=== PATIENT | male | born 1995 | race Caucasian/White ===

== ENCOUNTER 2016-08-20 10:52 | Emergency (ER) | payer OTHER ==
[~2016-08-20] VITALS: Ht 190.5 cm; Wt 86.2 kg
[2016-08-20 11:00] VITALS: BP 116/46
--- NOTE | 2016-08-20 11:08 | ED.ADGEN ---
Past History Past Medical History: No Pertinent History Adult General Chief Complaint Chief Complaint chin laceration HPI HPI Patient is a 21 year old male who presents with chin laceration. Patient was doing duty exercise, performing tasks where he would jump up in the ear with his legs, loss his balance and fell hitting his chin on the ground. No loss of consciousness. Normal ambulation after the fact. Reports he is up-to- date with his immunizations. Denies other injuries, no neck or back pain. Review of Systems Review of Systems Constitutional: Denies fever or chills [] Eyes: Denies change in visual acuity, redness, or eye pain [] HENT: Denies nasal congestion or sore throat [] Musculoskeletal: Denies back pain or joint pain [] Neurologic: reports mild headache, denies focal weakness or sensory changes [] Physical Exam Physical Exam Constitutional: Well developed, well nourished, no acute distress, non-toxic appearance.smiling, laughing HENT: Normocephalic, 2 cm linear chin laceration, good hemostasis, edges well- approximate. Eyes: PERRLA, EOMI, conjunctiva normal, no discharge. [] Neck: Normal range of motion, no tenderness, supple, no stridor. [] Cardiovascular:Heart rate regular Lungs & Thorax: no respiratory distress Neurologic: Alert and oriented X 3, normal motor function, normal sensory function, no focal deficits noted. [] Psychologic: Affect normal, judgement normal, mood normal. [] EKG EKG [] Radiology/Procedures Radiology/Procedures chin lac cleaned by nursing closed by me with skin glue, covered with 2 steristrips, wound care instruction given.[] Course & Med Decision Making Course & Med Decision Making Pertinent Labs and Imaging studies reviewed. (See chart for details) Return precautions given. concussion instructions given. Pt dc'd in improved condition. Final Impression Final Impression chin laceration[] Problems: Dragon Disclaimer Dragon Disclaimer This electronic medical record was generated, in whole or in part, using a voice recognition dictation system. LILY DENISE MD Aug 20, 2016 11:08
== END 2016-08-20 11:27 | disposition home or self-care (01) ==
LOC: ER 10:52
DX: S01.81XA Laceration without foreign body of other part of head, initial encounter (principal); W18.09XA Striking against other object with subsequent fall, initial encounter; Y93.89 Activity, other specified; Y99.8 Other external cause status; Y92.89 Other specified places as the place of occurrence of the external cause
CPT/HCPCS: 12011; 99283-25

== ENCOUNTER 2016-11-23 11:06 | Emergency (ER) | payer OTHER ==
[2016-11-23 11:15] VITALS: BP 111/80
--- NOTE | 2016-11-23 12:06 | PHYS DOC ---
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 He also has a scrape on his left knee and right leg but states that those areas are fine, he just wants to get his hand checked out. He was leaving branch and he fell forward down about 4 stairs. He caught himself with his left hand. It continues to hurt and have limited range of motion due to the pain. He denies head or neck injury. Review of Systems Review of Systems Musculoskeletal: As in history of present illness Integument: Abrasions to left knee and right leg as in history of present illness Neurologic: Denies head injury Allergies Allergies Allergies Coded Allergies Type Severity Reaction Last Updated Verified No Known Drug Allergies 08/20/16 No Physical Exam Physical Exam Constitutional: Well developed, well nourished, no acute distress, non-toxic appearance. Alert, mentating normally, ambulatory. HENT: Normocephalic, atraumatic, bilateral external ears normal, nose normal. [] Eyes: conjunctiva normal, no discharge. [] Neck: Normal range of motion, no stridor. [] Skin: Warm, dry, no erythema, no rash. Abrasion to the left knee with a Band- Aid on it. Extremities: Left hand has no deformity, no swelling. There is a small, superficial abrasion on the medial aspect of the hand. There is diffuse tenderness to palpation of the hand and fingers. No point tenderness. Patient is reluctant to move his fingers at all, stating it hurts too much. On discrete testing he does appear to have normal range of motion of the fingers however. Wrist is nontender to palpation with no snuffbox tenderness. Neurologic: Alert and oriented X 3, normal motor function, normal sensory function, no focal deficits noted. [] EKG EKG [] Radiology/Procedures Radiology/Procedures Three-view x-ray of the left hand read by me. No acute bony injury. [] Course & Med Decision Making Course & Med Decision Making Pertinent Labs and Imaging studies reviewed. (See chart for details) 21-year-old male presents a few hours after a fall with left hand pain. X-rays are negative. See instructions for plan. [] Dragon Disclaimer Dragon Disclaimer This chart was dictated in whole or in part using Voice Recognition software in a busy, high-work load, and often noisy Emergency Department environment. It may contain unintended and wholly unrecognized errors or omissions. Departure Departure: Impression: Primary Impression: Contusion of left hand Disposition: HOME, SELF-CARE Condition: STABLE Referrals: JORGE DE LEÓN DO, [facility] (PCP) Patient Instructions: Hand Contusion, Glqi-[id number] Additional Instructions: X-rays were read by me as normal. The radiologist will read them as well. Over the weekend, elevate, rest, ice 15-20 minutes out of every 1-2 hours. Ibuprofen as needed for pain. If not much better in 3-4 days, recheck. BART ROWE MD Nov 23, 2016 12:06
--- NOTE | 2016-11-23 12:30 | RAD ---
Three-view study of the left hand History: Hand numbness and stiffness. Injury from a fall this a.m. Left hand pain. Findings: No acute fracture or dislocation or osteolytic process is seen. IMPRESSION: No acute fracture.
== END 2016-11-23 12:10 | disposition home or self-care (01) ==
LOC: ER 11:06
DX: S60.222A Contusion of left hand, initial encounter (principal); W10.8XXA Fall (on) (from) other stairs and steps, initial encounter; Y93.89 Activity, other specified; Y99.8 Other external cause status; Y92.89 Other specified places as the place of occurrence of the external cause
CPT/HCPCS: 29125; 73130; 99284-25

== ENCOUNTER 2019-02-04 23:29 | Emergency (ER) | payer OTHER ==
[~2019-02-04] VITALS: Ht 193 cm; Wt 88.5 kg
--- NOTE | 2019-02-05 00:14 | RAD ---
Study: CHEST PA LATERAL Indication: Cough. Comparison: None. Findings: No lobar consolidation, pleural effusion or pneumothorax. Unremarkable cardiomediastinal silhouette and hilar structures. No free air seen under the diaphragm. Grossly intact osseous structures. Impression: Unremarkable radiographic appearance of the chest. Electronically signed by: ELMA GRANT MD (02/05/2019 12:11 AM) [facility]
[2019-02-05] MEDS ORDERED: ONDANSETRON ODT 4 MG TAB.RAPDIS PO ONE (00:15)
[2019-02-05] MEDS ORDERED: ONDA4TAB12 PO (00:36)
--- NOTE | 2019-02-05 00:37 | PHYS DOC ---
Past History Past Medical History: No Pertinent History Past Surgical History: No Surgical History Additional Past Surgical Histo: Benign mass remove from under tongue 03/2017 Additional Smoking Information: Current vape user Alcohol Use: Occasionally Drug Use: None Adult General Chief Complaint Chief Complaint: multiple medical complaints HPI HPI Patient is a 23-year-old male who presents to the emergency department for evaluation. He states this morning he woke up not feeling quite well, with some nasal congestion. He had a few episodes of loose stool today, and a nonproductive cough. He states he vomited a few times this evening and then developed a nosebleed, after which she vomited some blood. He denies any pain or shortness of breath. He denies any abdominal pain, back pain, headache, vision changes, bloody diarrhea, dizziness or lightheadedness. He has not been febrile. There are no alleviating or exacerbating factors to his symptoms. Review of Systems Review of Systems Constitutional: Denies fever or chills [] Eyes: Denies change in visual acuity, redness, or eye pain [] HENT: Denies otalgia or sore throat. Reports nasal congestion. [] Respiratory: Denies shortness of breath [] Cardiovascular: The patient denies any shortness of breath, chest pain, palpitations, or orthopnea[] GI: Denies abdominal pain, bloody stools or diarrhea [] : Denies dysuria or hematuria [] Musculoskeletal: Denies back pain or joint pain [] Integument: Denies rash or skin lesions [] Neurologic: Denies headache, focal weakness or sensory changes [] Endocrine: Denies polyuria or polydipsia [] All other systems were reviewed and found to be within normal limits, except as documented in this note. Current Medications Current Medications Current Medications Medications (Trade) Dose Ordered Sig/Arben Start Time Stop Time Status Last Admin Dose Admin Ondansetron HCl (Zofran Odt) 4 mg 1X ONCE 02/05/19 00:15 02/05/19 00:16 DC 02/04/19 23:59 4 MG Allergies Allergies Allergies Coded Allergies Type Severity Reaction Last Updated Verified oxycodone Allergy Mild Hives 02/04/19 Yes Physical Exam Physical Exam PHYSICAL EXAM: CONSTITUTIONAL: Well developed, well nourished HEAD: normocephalic, atraumatic EENT: PERRL, EOMI. Conjunctivae normal color, sclerae non-icteric; moist mucous membranes. Tympanic membranes are normal bilaterally. The oropharynx is nonerythematous. There is bogginess of the nasal mucosa, with some dried blood in the nostrils without any septal hematoma. NECK: Supple, non-tender; no meningismus. LUNGS: Lungs CTA, breathing even and unlabored. Normal air movement. HEART: Regular rate and rhythm, no murmur CHEST: No deformity; non-tender ABDOMEN: The abdomen is soft, and non-tender, no masses or bruits. There is no reproducible tenderness to palpation of the abdomen. EXTREM: Normal ROM; no deformity, no calf tenderness. Normal pulses palpable in all extremities. There is no pedal edema. SKIN: No rash; no diaphoresis NEURO: Alert; normal speech and cognition; CN's grossly intact; strength grossly intact without focal deficit. BACK: No CVA TTP. Current Patient Data Vital Signs Vital Signs Date Time Temp Pulse Resp B/P (MAP) Pulse Ox O2 Delivery O2 Flow Rate FiO2 02/04/19 23:41 98.6 110 18 95 Room Air EKG EKG [] Radiology/Procedures Radiology/Procedures ER physician preliminary chest x-ray interpretation: No acute disease. Course & Med Decision Making Course & Med Decision Making Pertinent Imaging studies reviewed. (See chart for details) []12:30 AM: The patient's condition remains stable. His symptoms are consistent with a viral syndrome, I discussed expectant and symptomatically management, the need for follow-up and return precautions. Dragon Disclaimer Dragon Disclaimer This electronic medical record was generated, in whole or in part, using a voice recognition dictation system. Departure Departure: Impression: Primary Impression: Upper respiratory infection Additional Impression: Viral syndrome Disposition: HOME, SELF-CARE Condition: STABLE Referrals: PCP,UNKNOWN (PCP) Patient Instructions: Nausea and Vomiting, Upper Respiratory Infection, Adult, Viral Syndrome Scripts Ondansetron (ONDANSETRON ODT) 4 Mg Tab.rapdis 1 TAB PO PRN Q6-8HRS PRN for NAUSEA, #10 TAB Prov: MARY ABEL MD 02/05/19 Problem Qualifiers MARY ABEL MD Feb 05, 2019 00:37
== END 2019-02-05 00:40 | disposition home or self-care (01) ==
LOC: ER 23:29
DX: B34.9 Viral infection, unspecified (principal); J06.9 Acute upper respiratory infection, unspecified; F17.200 Nicotine dependence, unspecified, uncomplicated; Z88.5 Allergy status to narcotic agent
CPT/HCPCS: 71046; 99284; Q0162